=== PATIENT | female | born 1975 | race Two or more races ===

== ENCOUNTER → 2017-11-16 | Emergency (ER) | payer OTHER ==
[~2017-11-16] VITALS: Ht 170.2 cm; Wt 106.6 kg
== END | disposition left against medical advice (07) ==
LOC: ER 17:56
DX: Z53.20 Procedure and treatment not carried out because of patient's decision for unspecified reasons (principal)

== ENCOUNTER 2018-11-07 03:36 | Emergency (ER) | payer OTHER ==
[~2018-11-07] VITALS: Ht 172.7 cm; Wt 111.1 kg
[2018-11-07] MEDS ORDERED: MUCINEX DM ER1 EAC1 PO (06:48)
[2018-11-07] MEDS ORDERED: TESSALON PERLE100 M1 PO (06:48)
[2018-11-07] MEDS ORDERED: PROMETH-CODEIN 65 ML PO (06:48)
[2018-11-07] MEDS ORDERED: ZITHROMAX TRI-500 MG PO (06:48)
== END 2018-11-07 08:30 | disposition home or self-care (01) ==
LOC: ER 03:36
DX: J06.9 Acute upper respiratory infection, unspecified (principal)

== ENCOUNTER 2020-12-06 16:41 | Emergency (ER) | payer OTHER ==
[~2020-12-06] VITALS: Ht 172.7 cm; Wt 97.1 kg
[~2020-12-06 16:41] MED LIST: MUCINEX DM ER1 EAC1 PO; PROMETH-CODEIN 65 ML PO; TESSALON PERLE100 M1 PO; ZITHROMAX TRI-500 MG PO
== END 2020-12-07 11:25 | disposition home or self-care (01) ==
LOC: ER 16:41
DX: M79.661 Pain in right lower leg (principal)

== ENCOUNTER 2021-04-15 11:43 | Outpatient (CLI) | payer OTHER | END 2021-04-15 12:03 | disposition home or self-care (01) | LOC: MRI 11:43 | DX: M25.551 Pain in right hip (principal) | CPT/HCPCS: 73721 ==

== ENCOUNTER 2021-04-22 09:51 | Outpatient (CLI) | payer OTHER | END 2021-04-22 10:06 | disposition home or self-care (01) | LOC: TOM 09:51 | DX: R92.1 Mammographic calcification found on diagnostic imaging of breast (principal); Z12.31 Encounter for screening mammogram for malignant neoplasm of breast; I73.89 Other specified peripheral vascular diseases; N64.59 Other signs and symptoms in breast ==